=== PATIENT | male | born 1970 | race Caucasian/White ===

== ENCOUNTER 2024-05-10 09:23 | Emergency (ER) | payer OTHER ==
[~2024-05-10] VITALS: Ht 167.6 cm; Wt 86.2 kg
[2024-05-10 09:31] VITALS: BP 182/98; PULSE 68; RESP 18; TEMP 97.3; O2SAT 98
[2024-05-10 09:41] VITALS: O2SAT 98
[2024-05-10 09:56] VITALS: BP 161/83; RESP 18; TEMP 98.3
[2024-05-10 11:07] VITALS: PULSE 70
[2024-05-10 11:25] LABS: BASOPHILS % (AUTO) 0.6 % (0.0-2.0); EOSINOPHILS # (AUTO) 0.2 K/uL (0-0.4); EOSINOPHILS % (AUTO) 3.1 % (0.0-4.0); HEMATOCRIT 40.2 % (36-52); HEMOGLOBIN 13.7 g/dL (12.0-18.0); LYMPHOCYTES # (AUTO) 2.7 K/uL (2.0-11.5); LYMPHOCYTES % (AUTO) 37.6 % (20.5-51.1); MEAN CORPUSCULAR HEMOGLOBIN 30 pg (27-31); MEAN CORPUSCULAR HGB CONC 34 g/dL (33-37); MEAN CORPUSCULAR VOLUME 87.5 fL (80-94); MONOCYTES # (AUTO) 0.6 K/uL (0.8-1.0); MONOCYTES % (AUTO) 8.2 % (1.7-9.3); NEUTROPHILS # (AUTO) 3.6 K/uL (1.8-7.7); NEUTROPHILS % (AUTO) 50.5 % (42.2-75.2); PLATELET COUNT (AUTO) 221 K/uL (140-450); RED BLOOD CELL COUNT(AUTO) 4.59 MIL/uL (4.20-6.10); RED CELL DISTRIBUTION WIDTH 14.3 % (11.6-13.7); WHITE BLOOD COUNT (AUTO) 7.2 K/uL (4.8-10.8)
[2024-05-10 11:31] VITALS: O2SAT 96
[2024-05-10 11:38] LABS: ANION GAP 14.1 (8-16); CALCIUM 9.4 mg/dL (8.5-10.1); CARBON DIOXIDE 25.9 mmol/L (21-32); CREATININE 0.8 mg/dL (0.6-1.3)
== END 2024-05-10 13:05 | disposition home or self-care (01) ==
LOC: MED 09:23
DX: M62.830 Muscle spasm of back (principal); I10 Essential (primary) hypertension; F17.210 Nicotine dependence, cigarettes, uncomplicated; Z98.890 Other specified postprocedural states
CPT/HCPCS: 36415; 80048; 84484; 85025; 93005; 99285

== ENCOUNTER 2024-05-20 08:03 | Emergency (ER) | payer SELFPAY ==
[~2024-05-20] VITALS: Ht 170.2 cm; Wt 90.7 kg
[2024-05-20 08:14] VITALS: BP 169/94; PULSE 84; RESP 20; TEMP 97.1; O2SAT 98
[2024-05-20] MEDS: DEXAMETHASONE 4 MG/ML VIAL PO ONE (08:28)
[2024-05-20] MEDS: KETOROLAC 30 MG/ML VIAL IM ONE (08:30)
[2024-05-20 09:46] VITALS: BP 169/94; PULSE 84; RESP 20; TEMP 97.1; O2SAT 98
== END 2024-05-20 09:47 | disposition home or self-care (01) ==
LOC: MED 08:03
DX: J02.9 Acute pharyngitis, unspecified (principal)
CPT/HCPCS: 96372; 99283; J1100; J1885